=== PATIENT | male | born 1975 | race Caucasian/White ===

== ENCOUNTER 2018-01-12 22:46 | Emergency (ER) | payer MEDICAID ==
[2018-01-12 22:46] VITALS: BMI 24.4
[2018-01-12 22:58] VITALS: O2SAT 98
[2018-01-12] MEDS ORDERED: Tdap Vaccine 0.5 ml Vial (10-64 yrs) IM ONE (23:41)
[2018-01-12] MEDS ORDERED: Lidocaine 1% Inj (20ml) INFIL ONE (23:41)
[2018-01-12] MEDS ORDERED: Bacitracin 500 Units/gm Oint Foilpak UD TOP ONE (23:41)
[2018-01-12] MEDS ORDERED: Bacitracin 500 Units/gm Oint Foilpak UD ONE (23:47)
[2018-01-12] MEDS ORDERED: Tetanus/Diphtheria Toxoids 0.5 ml Syringe IM ONE (23:47)
[2018-01-12] MEDS ORDERED: Lidocaine Hydrochloride 5 ML INJ ONE ×2 (23:50→23:51)
--- NOTE | 2018-01-13 01:07 | C.PDOC ---
History Of Present Illness 42 year old male presents to the ED for evaluation of right hand pain. Patient states that while working he accidentally hit his hand against a food cart. Patient sustained a V-Shaped laceration to the dorsum of his right hand. Patient denies fever, chills, weakness, numbness, tingling or any other injuries. last tdap unk Time Seen by Provider: 01/12/18 23:20 Chief Complaint (Nursing): Finger,Hand,&Wrist History Per: Patient History/Exam Limitations: no limitations Onset/Duration Of Symptoms: Hrs Current Symptoms Are (Timing): Still Present Quality: "Pain" Exacerbating Factor(s): Movement Recent travel outside of the [place]: No Additional History Per: Patient Past Medical History Reviewed: Historical Data, Nursing Documentation, Vital Signs Vital Signs: Last Vital Signs Temp 98.6 F 01/13/18 02:04 Pulse 82 01/13/18 02:04 Resp 20 01/13/18 02:04 BP 140/60 01/13/18 02:04 Pulse Ox 98 01/13/18 06:20 - Medical History PMH: No Chronic Diseases Surgical History: No Surg Hx Family History: States: Unknown Family Hx - Social History Hx Alcohol Use: No Hx Substance Use: No - Immunization History Hx Tetanus Toxoid Vaccination: No Hx Influenza Vaccination: No Hx Pneumococcal Vaccination: No Review Of Systems Constitutional: Negative for: Fever, Chills Musculoskeletal: Positive for: Hand Pain Skin: Positive for: Other (laceration) Neurological: Negative for: Weakness, Numbness Physical Exam - Physical Exam Appears: Non-toxic, No Acute Distress Skin: Normal Color, Warm, Dry Head: Atraumatic, Normacephalic Extremity: Normal ROM, Tenderness (right hand dorsum), Capillary Refill (< 2 seconds), No Swelling, Other (W Shaped flap laceration to dorsum of right hand between 2nd and 3rd fingers. no tendon injury noted, able to flex and extend all fingers against resistance. from right wrist and elbow) Pulses: Left Radial: Normal, Right Radial: Normal Neurological/Psych: Oriented x3, Normal Speech, Normal Cognition, Normal Motor, Normal Sensation Gait: Steady ED Course And Treatment O2 Sat by Pulse Oximetry: 98 (ON RA) Pulse Ox Interpretation: Normal - Other Rad Right hand X-Ray X-Ray: Interpreted by Me, Viewed By Me Interpretation: No fracture or dislocation Laceration - Laceration Repair right hand dorsal aspect Wound Length (In cm): 2 Description Of Wound: Irregular (w-Shaped flap) Wound Cleansed With: Betadine, Sterile Saline Anesthesia: Lidocaine 1% Wound Examination: Irrigated With Saline, No FB With Wound Exploration, No Tendon Injury With Wound Exploration Wound Closure: Suture (4-0 nylon) Suture Technique And Material Used: Interrupted (#6) Wound Complexity: Simple Medical Decision Making Medical Decision Making: Plan: * tetanus immunization * lidocaine 1% * Tylenol 975 mg PO wond repaired, tdap given,. d/c home Disposition Counseled Patient/Family Regarding: Studies Performed, Diagnosis, Need For Followup, Rx Given - Disposition Referrals: [facility] [Outside] [facility] [Outside] Disposition: HOME/ ROUTINE Disposition Time: 01:53 Condition: GOOD Additional Instructions: Please keep wound clean; Change dressing daily- wash gently with soap and water and look for any signs of infection such as redness. swelling. warmth, purulent discharge. Apply bacitracin or any other antibiotic ointment. Take Tylenol or Motrin for pain if [id number]. Return to ER for any sign of infection. Suture removal in 10 days. . Prescriptions: Acetaminophen [Tylenol 325mg tab] 650 mg PO Q4 #50 tab Bacitracin OINT 1 applic TOP BID #1 tube Instructions: Laceration Repair With Stitches (DC) Forms: LYYN (Serbian) - Clinical Impression Clinical Impression: Laceration of right hand - PA / [employer] / Resident Statement MD/DO has reviewed & agrees with the documentation as recorded. - Scribe Statement The provider has reviewed the documentation as recorded by the Scribe Jones Cruz All medical record entries made by the Scribe were at my direction and personally dictated by me. I have reviewed the chart and agree that the record accurately reflects my personal performance of the history, physical exam, medical decision making, and the department course for this patient. I have also personally directed, reviewed, and agree with the discharge instructions and disposition.
[2018-01-13 02:05] VITALS: BP 140/60; PULSE 82; RESP 20; TEMP 98.6
--- NOTE | 2018-01-13 14:14 | RAD ---
PROCEDURE: Right Hand Radiographs. HISTORY: laceration to 3-4 metacarpal region assess for fracture COMPARISON: None. FINDINGS: BONES: Normal. No fracture. JOINTS: Normal. No osteoarthritic changes. SOFT TISSUES: Normal. OTHER FINDINGS: None. IMPRESSION: No acute findings related to/accounting for the clinical presentation. No visulaized radiopaque/visualized foreign body. Concordant results with the preliminary interpretation rendered by the emergency department physician procedure.
== END 2018-01-13 02:02 | disposition home or self-care (01) ==
LOC: C.ER 22:46
DX: S61.411A Laceration without foreign body of right hand, initial encounter (principal); W22.8XXA Striking against or struck by other objects, initial encounter; Z23 Encounter for immunization